=== PATIENT | female | born 1960 | race Caucasian/White ===

== ENCOUNTER → 2020-09-25 | Outpatient (CLI) | payer BC ==
[~2020-09-25] MED LIST: GLUCOPHAGE 500500 MG PO; LISINOPRIL-HCT1 EAC2 PO; MOTRIN IB200 MG PO
== END ==
LOC: HEART 5 12:35
DX: R06.02 Shortness of breath (principal); F17.200 Nicotine dependence, unspecified, uncomplicated
CPT/HCPCS: 93306

== ENCOUNTER → 2021-08-06 | Outpatient (CLI) | payer BC | LOC: HEART 5 11:11 | DX: R07.9 Chest pain, unspecified (principal); R06.02 Shortness of breath ==